=== PATIENT | male | born 1980 | race Caucasian/White ===

== ENCOUNTER 2019-11-20 15:47 | Emergency (ER) | payer OTHER ==
[2019-11-20] MEDS ORDERED: TETANUS & DIPHTHERIA TOX,ADULT 0.5 ML VIAL ONE (16:28)
[2019-11-20] MEDS ORDERED: LIDOCAINE 1% MPF 5 ML VIAL ONE (16:39)
[2019-11-20] MEDS ORDERED: LIDOCAINE 1% W/EPI 1:100,000 MDV 20 ML VIAL ONE (16:58)
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
[2019-11-20 18:43] VITALS: BP 117/84; TEMP 97.4; O2SAT 98
== END 2019-11-20 18:39 | disposition home or self-care (01) ==
LOC: ER 15:47
PROC: 0JQH0ZZ Repair Left Lower Arm Subcutaneous Tissue and Fascia, Open Approach (ICD-10-PCS; principal; 2019-11-20)
DX: S51.812A Laceration without foreign body of left forearm, initial encounter (principal); W26.0XXA Contact with knife, initial encounter; Y93.89 Activity, other specified; Y92.9 Unspecified place or not applicable; Z23 Encounter for immunization
CPT/HCPCS: 90471; 90714; 99284